=== PATIENT | male | born 1995 | race Two or more races ===

== ENCOUNTER 2016-12-27 10:28 | Emergency (ER) | payer MEDICAID, OTHER ==
[~2016-12-27] VITALS: Ht 162.6 cm; Wt 63.5 kg
[2016-12-27 12:45] VITALS: BP 116/59
[2016-12-27] MEDS ORDERED: KETOROLAC TROMETH 30 MG/ML 1ML VIAL IM ONE (13:30)
== END 2016-12-27 14:50 | disposition home or self-care (01) ==
LOC: ER 10:28
DX: S70.01XA Contusion of right hip, initial encounter (principal); V49.49XA Driver injured in collision with other motor vehicles in traffic accident, initial encounter; Y93.89 Activity, other specified; Y99.8 Other external cause status; Y92.89 Other specified places as the place of occurrence of the external cause
CPT/HCPCS: 73502; 96372; 99284; J1885